=== PATIENT | female | born 1995 | race Caucasian/White ===

== ENCOUNTER 2016-08-26 08:15 | Day surgery (SDC) | payer BC, OTHER ==
--- NOTE | 2016-08-26 07:41 | PDGENHP ---
History & Physical Outpatient Chief Complaint: Endometriosis History of Present Illness: 21 year old with long history of dysmenorrhea and pelvic pain highly suggestive of endometriosis. Pertinent Past, Social, Family History: ADHD. Celiac disease. Pelvic pain Relevant Physical Exam: Tender ant and post cervix, vesicouterine reflection, post culdesac, US ligs and rectum. No nodules. US likely right ovarian adhesions to sidewall. Cardiorespiratory Assessment: Lungs clear. Heart regular.
[~2016-08-26 08:15] MED LIST: LR 1,000 ML IV SCH; ceFAZolin 2 GM/DEXTROSE 100 ML IV ONE
[2016-08-26] MEDS ORDERED: BUPIVACAINE/EPI 0.5% 30 ML SDV ONE (08:26)
[2016-08-26] MEDS ORDERED: LIDOCAINE 1% 5 ML SDV ID PRN (08:39)
[2016-08-26] MEDS ORDERED: LR 1,000 ML IV ONE (08:39)
[2016-08-26] MEDS ORDERED: LIDOCAINE 1% 2 ML INJ ONE (08:46)
[2016-08-26] MEDS ORDERED: PROPOFOL 200 MG/20 ML VIAL ONE (09:42)
[2016-08-26] MEDS ORDERED: fentaNYL 100 MCG/2 ML INJ ONE ×3 (09:42→12:44)
[2016-08-26] MEDS ORDERED: MIDAZOLAM 2 MG/2 ML VIAL IVP ONE (10:35)
[2016-08-26] MEDS ORDERED: SCOPOLAMINE HYDROBROMIDE 1.5 MG PATCH TD ONE ×2 (10:35→10:36)
--- NOTE | 2016-08-26 10:35 | PDANEPAE ---
ANE History of Present Illness patient presents for robotic assisted excision of endometriosis ANE Past Medical History - Cardiovascular History Hx Hypertension: No Hx Arrhythmias: No Hx Chest Pain: No Hx Coronary Artery / Peripheral Vascular Disease: No Hx CHF / Valvular Disease: No Hx Palpitations: No - Pulmonary History Hx COPD: No Hx Asthma/Reactive Airway Disease: No Hx Recent Upper Respiratory Infection: No Hx Oxygen in Use at Home: No - Neurologic History Hx Cerebrovascular Accident: No Hx Seizures: No Hx Dementia: No - Endocrine History Hx Diabetes: No - Renal History Hx Renal Disorders: No - Liver History Hx Hepatic Disorders: No - Neurological & Psychiatric Hx Hx Neurological and Psychiatric Disorders: Yes - Cancer History Hx Cancer: No - Congenital Disorder History Hx Congenital Disorders: No - GI History Hx Gastrointestinal Disorders: No - Chronic Pain History Chronic Pain: Yes (PELVIC REGION,LOW BACK) ANE Review of Systems - Exercise capacity Exercise capacity: >=4 METS METS (RN): 4 METS ANE Patient History - Allergies Allergies/Adverse Reactions: gluten Allergy (Severe, Verified 08/26/16 07:49) Other-Enter Comments adhesive Allergy (Verified 08/14/16 09:51) milk Allergy (Verified 08/14/16 09:50) pseudoephedrine [From Sudafed] Allergy (Verified 08/14/16 09:49) - Home Medications Home Medications: Adderall Xr 5 mg Capsule BID 08/14/16 [Last Taken 08/23/16] Herbal Drugs 08/14/16 [Last Taken 08/18/16] - NPO status NPO Since - Liquids (Date): 08/25/16 NPO Since - Liquids (Time): 23:00 NPO Since - Solids (Date): 08/25/16 NPO Since - Solids (Time): 22:00 - Anes Hx Anes Hx: no prior problems - Smoking Hx Smoking Status: Never smoked ANE Labs/Vital Signs - Vital Signs Blood Pressure: 108/80 Heart Rate: 93 Respiratory Rate: 12 O2 Sat (%): 93 Height: 162.56 cm Weight: 57.153 kg ANE Physical Exam - Airway Neck exam: FROM Mallampati Score: Class 1 Mouth exam: normal dental/mouth exam - ASA Status ASA Status: I ANE Anesthesia Plan Anesthesia Plan: general endotracheal anesthesia (RBA discussed including risk of electrocautery turcios due to nasal piercing. )
[2016-08-26] MEDS ORDERED: MIDAZOLAM 2 MG/2 ML VIAL ONE (10:36)
[2016-08-26] MEDS ORDERED: ROCURONIUM 50 MG/5 ML VIAL ONE ×2 (10:49→11:27)
[2016-08-26] MEDS ORDERED: KETOROLAC 30 MG/1 ML SDV ONE (10:50)
[2016-08-26] MEDS ORDERED: PROPOFOL/EMULSION 500 MG/50 ML BOTTLE IV ONE (10:50)
[2016-08-26] MEDS ORDERED: DEXAMETHASONE 4 MG/ML VIAL ONE (10:50)
[2016-08-26] MEDS ORDERED: ONDANSETRON 4 MG/2 ML VIAL ONE ×2 (10:50→12:44)
[2016-08-26] MEDS ORDERED: ACETAMINOPHEN 500 MG TAB PO PRN (11:41)
[2016-08-26] MEDS ORDERED: NALOXONE HCL 0.4 MG/ML INJ IVP PRN (11:41)
[2016-08-26] MEDS ORDERED: ONDANSETRON 4 MG/2 ML VIAL IVP PRN (11:41)
[2016-08-26] MEDS ORDERED: ALBUTEROL 3 ML DEYVIAL IH PRN (11:41)
[2016-08-26] MEDS ORDERED: OXYCODONE/APAP 5/325 TAB PO PRN ×2 (11:41→12:44)
[2016-08-26] MEDS ORDERED: SUGAMMADEX SODIUM 200 MG/2 ML VIAL IVP ONE (12:10)
--- NOTE | 2016-08-26 12:43 | POSTOPPROG ---
Post Op Note Date of Operation: 08/26/16 Surgeon: Corby De Leon Aerial Photograph Interpreter: Martha Luo Anesthesia: GET(General Endotracheal) Pre-op Diagnosis: pelvic pain , endometriosis Post-op Diagnosis: same Procedure: Robotic excision of endo, bilat ureterolysis, cysto Findings: endo Inf/Abcess present in the surg proc area at time of surgery?: No EBL: Minimal Complications: None
[2016-08-26] MEDS ORDERED: oxyCODONE IR 5 MG TAB PO PRN (12:44)
[2016-08-26] MEDS ORDERED: HYDROCODONE/APAP 5/325 TAB PO PRN (12:44)
[2016-08-26] MEDS ORDERED: ONDANSETRON DISINTEGRATING 4 MG TAB PO PRN (12:44)
[2016-08-26] MEDS: fentaNYL 100 MCG/2 ML INJ IVP PRN ×3 (12:47→13:07)
--- NOTE | 2016-08-26 13:02 | POSTANESTH ---
Post Anesthetic Evaluation Cardiovascular Status: Normal, Stable Respiratory Status: Normal, Stable Level of Consciousness/Mental Status: Can Participate in Eval Pain Control: Adequate, Prn Tx Ordered Nausea/Vomiting Control: Adequate, Prn Tx Ordered Complications Possibly Related to Anesthesia: None Noted
[2016-08-26] MEDS ORDERED: PROMETHAZINE HCL 25 MG/ML INJ IVP ONE (13:24)
[2016-08-26] MEDS ORDERED: PROMETHAZINE HCL 25 MG/ML INJ ONE (13:29)
[2016-08-26 13:52] VITALS: RESP 16
[2016-08-26 14:43] VITALS: BP 100/69; PULSE 64; O2SAT 98
[2016-08-26 14:44] VITALS: TEMP 97.5
--- NOTE | 2016-08-27 04:51 | GOP ---
[f rep st] OPERATIVE REPORT DATE OF OPERATION: 08/26/2016 SURGEON: Corby De Leon MD [employer] SUPERVISOR: Martha Luo CFA. ANESTHESIA: General. PREOPERATIVE DIAGNOSIS: 1. Dysmenorrhea. 2. Pelvic pain. 3. Probable endometriosis. 4. Urinary frequency. POSTOPERATIVE DIAGNOSIS: 1. Dysmenorrhea. 2. Pelvic pain. 3. Probable endometriosis. 4. Urinary frequency. PROCEDURE PERFORMED: 1. Robotic excision of extensive endometriosis in posterior cul-de-sac and bilateral ovarian fossa. 2. Bilateral ureterolysis. 3. Bilateral ovariopexies. 4. Cystoscopy. FINDINGS: SPECIMENS: Pelvic peritoneum with endometriosis. ESTIMATED BLOOD LOSS: Scant. DESCRIPTION OF PROCEDURE: The patient was taken to the operating room. She was identified. Genera l anesthesia was administered and found to be adequate. She was placed in the lithotomy position, a nd prepared and draped in normal sterile fashion. A Hulka tenaculum was placed in the uterus for ma nipulation. A Huang catheter was then placed. A 1 cm infraumbilical incision was made with a scalpel. The Veress needle, with the CO2 gas flowing , was advanced into the peritoneal cavity. The abdomen was then insufflated with carbon dioxide gas . The 12 mm trocar, followed by the laparoscope were then inserted. The upper abdomen was unremark able. There was no evidence of endometriosis on either diaphragm, liver, or stomach. Two lateral p orts were placed on the right and 1 on the left under direct visualization. The patient was then pl aced in Trendelenburg position and the da Piedad robot docked on the left side. The instruments were then brought into the abdominal cavity under direct visualization. The patient was found to have endometriosis in the posterior cul-de-sac, both uterosacral ligaments, as well as the ovarian fossa. Several small lesions were noted on each ovary. She only had approx imately 3 very small lesions in the anterior cul-de-sac. The entire posterior cul-de-sac peritoneum was completely excised. A bilateral ureterolysis was required to safely remove the endometriosis a nd peritoneum on both ovarian fossa due to the endometriosis overlying both ureters. The peritoneum was opened bilaterally at the pelvic brims. The ureters were gently dissected free and lateralized in the pelvic brim, all the way down to the bladder. Once this was accomplished, the overlying per itoneum and endometriosis were completely excised. The lesions on the ovaries and anterior cul-de-s ac were fulgurated. Bilateral ovariopexies were then performed due to her cyclic pelvic pain, and removed peritoneum. T he ovaries were attached to their ipsilateral round ligaments near the internal inguinal rings using 3-0 Vicryl Rapide suture. The pelvis was then copiously irrigated with sterile saline and hemostas is was present. The robot was then undocked. The fascia was closed with 0 Vicryl, skin with 4-0 Mo nocryl and surgical adhesive. Cystoscopy was then performed. No Hunner ulcers were seen within the bladder. No bladder nor ureth ral injury was seen. No obvious pathology was seen. Both ureters had vigorous jets of urine. Anes thesia was reversed and the patient taken to PACU awake, in stable condition. COMPLICATIONS: None. DISPOSITION: Patient stable to PACU. /[id number]/MODL
== END 2016-08-26 15:35 | disposition home or self-care (01) ==
LOC: FSGY 08:15
PROVIDERS: ATTEND Obstetrics & Gynecology
DX: N80.3 Endometriosis of pelvic peritoneum (principal); N94.6 Dysmenorrhea, unspecified; R10.2 Pelvic and perineal pain; R35.0 Frequency of micturition; K90.0 Celiac disease; F90.9 Attention-deficit hyperactivity disorder, unspecified type
CPT/HCPCS: J0690; J1100; J1885; J2250; J2405; J2550; J2704; J3010